=== PATIENT | female | born 1980 | race Caucasian/White ===

== ENCOUNTER 2018-05-09 09:34 | Emergency (ER) | payer MEDICAID ==
[~2018-05-09] VITALS: Ht 154.9 cm; Wt 78.2 kg
[2018-05-09 09:41] VITALS: Ht 154.9 cm; Wt 78.2 kg
[2018-05-09] MEDS ORDERED: TRAZODONE HCL150 MG PO ×2 (09:44→10:37)
[2018-05-09] MEDS ORDERED: LISINOPRIL20 MG PO (09:44)
[2018-05-09] MEDS ORDERED: NEXIUM40 MG PO (09:44)
[2018-05-09] MEDS ORDERED: PRINIVIL20 MG PO (10:37)
[2018-05-09] MEDS ORDERED: OMEPRAZOLE40 MG PO (10:37)
[2018-05-09 11:37] VITALS: BP 145/94
[2018-05-10] MEDS ORDERED: VISTARIL50 MG PO (11:49)
[2018-05-10] MEDS ORDERED: SEROQUEL25 MG PO (11:49)
[2018-05-10] MEDS ORDERED: ZESTORETIC 20-1 EACH PO (11:49)
[2018-05-10] MEDS ORDERED: KEFLEX500 MG PO (11:52)
== END 2018-05-09 11:35 | disposition home or self-care (01) ==
LOC: D.ER 09:34
DX: F41.9 Anxiety disorder, unspecified (principal); K21.9 Gastro-esophageal reflux disease without esophagitis; I10 Essential (primary) hypertension

== ENCOUNTER 2018-05-10 10:40 | Emergency (ER) | payer MEDICAID ==
[~2018-05-10] VITALS: Ht 154.9 cm; Wt 77.3 kg
[~2018-05-10 10:40] MED LIST: LISINOPRIL20 MG PO; NEXIUM40 MG PO; OMEPRAZOLE40 MG PO; PRINIVIL20 MG PO; TRAZODONE HCL150 MG PO
[2018-05-10 10:55] VITALS: Ht 154.9 cm; Wt 77.3 kg
[2018-05-10] MEDS ORDERED: VISTARIL50 MG PO (11:49)
[2018-05-10] MEDS ORDERED: ZESTORETIC 20-1 EACH PO (11:49)
[2018-05-10] MEDS ORDERED: SEROQUEL25 MG PO (11:49)
[2018-05-10] MEDS ORDERED: KEFLEX500 MG PO (11:52)
[2018-05-10 13:32] VITALS: BP 127/73
== END 2018-05-10 13:23 | disposition home or self-care (01) ==
LOC: D.ER 10:40
DX: F41.9 Anxiety disorder, unspecified (principal); F31.81 Bipolar II disorder; G47.00 Insomnia, unspecified; J02.0 Streptococcal pharyngitis

== ENCOUNTER 2018-05-12 14:59 | Emergency (ER) | payer MEDICAID ==
[~2018-05-12] VITALS: Ht 154.9 cm; Wt 77.3 kg
[~2018-05-12 14:59] MED LIST changes: +KEFLEX500 MG PO; +SEROQUEL25 MG PO; +VISTARIL50 MG PO; +ZESTORETIC 20-1 EACH PO
[2018-05-12 15:07] VITALS: Ht 154.9 cm; Wt 77.3 kg
[2018-05-12] MEDS ORDERED: VISTARIL50 MG PO (17:42)
[2018-05-12] MEDS ORDERED: TAMIFLU75 MG PO (17:42)
[2018-05-12 18:00] VITALS: BP 122/76
== END 2018-05-12 18:22 | disposition home or self-care (01) ==
LOC: D.ER 14:59
DX: J09.X2 Influenza due to identified novel influenza A virus with other respiratory manifestations (principal); F17.200 Nicotine dependence, unspecified, uncomplicated; I10 Essential (primary) hypertension

== ENCOUNTER 2018-05-24 14:58 | Emergency (ER) | payer MEDICAID ==
[~2018-05-24] VITALS: Ht 154.9 cm; Wt 72.7 kg
[~2018-05-24 14:58] MED LIST changes: +TAMIFLU75 MG PO
[2018-05-24 15:01] VITALS: Ht 154.9 cm; Wt 72.7 kg
[2018-05-24 15:59] LABS: BASOPHILS 0.4 % (0-2); EOSINOPHILS 2.7 % (0-7); HEMATOCRIT 36.7 % (36.0-48.0); HEMOGLOBIN 12.3 g/dL (12-16); IMMATURE GRANULOCYTES 0.2 % (0-5); LYMPHOCYTES 18.8 % (15-50); MCH 30.8 pg (26.0-34.0); MCHC 33.5 g/dL (31.0-37.0); MEAN PLATELET VOLUME 11.1 fL (7.4-10.4); MONOCYTES 5.4 % (2-11); NEUTROPHILS 72.5 % (40-80); PLATELET COUNT 237 10x3/uL (130-400); RBC 3.99 10x6/uL (4.00-5.40); RDW 14.1 % (11.5-14.5); WBC 10.5 10x3/uL (4.8-10.8)
[2018-05-24 16:20] LABS: ALBUMIN 3.5 g/dL (3.4-5.0); ALKALINE PHOSPHATASE 56 U/L (46-116); ALT (SGPT) 30 U/L (10-68); BILIRUBIN - TOTAL 0.25 mg/dL (0.2-1.3); CALC OSMOLALITY 279 mosm/kg (275-300); CALCIUM 8.8 mg/dL (8.5-10.1); CARBON DIOXIDE 24.2 mmol/L (21.0-32.0); CHLORIDE - SERUM 105 mmol/L (98-107); CREATININE - SERUM 0.7 mg/dL (0.6-1.3); GLUCOSE 99 mg/dL (74-106); POTASSIUM - SERUM 3.5 mmol/L (3.5-5.1); PROTEIN - SERUM 7.8 g/dL (6.4-8.2); SODIUM 141 mmol/L (136-145); UREA NITROGEN 9 mg/dL (7-18); eGFR NON AFRICAN AMERICAN > 90 mL/min (90-120)
[2018-05-24 16:25] LABS: APPEARANCE HAZY (CLEAR); BILIRUBIN NEGATIVE (NEGATIVE); COLOR YELLOW (YELLOW); GLUCOSE NEGATIVE (NEGATIVE); KETONE NEGATIVE (NEGATIVE); NITRITE NEGATIVE (NEGATIVE); PROTEIN NEGATIVE (NEGATIVE); SPECIFIC GRAVITY 1.015 (1.005-1.020); UROBILINOGEN NORMAL (NORMAL)
[2018-05-24 16:35] LABS: BACTERIA MODERATE /hpf (NONE SEEN); EPITHELIAL CELLS 0-5 /hpf (0-5); MUCUS <1+ /lpf (NONE SEEN); RED CELLS - URINE 0-5 /hpf (0-5); UDS - AMPHET NEGATIVE QUAL (NEGATIVE); UDS - BARB NEGATIVE QUAL (NEGATIVE); UDS - BENZO POSITIVE QUAL (NEGATIVE); UDS - COCAINE NEGATIVE QUAL (NEGATIVE); UDS - OPIATE NEGATIVE QUAL (NEGATIVE); UDS - PCP NEGATIVE QUAL (NEGATIVE); UDS - THC NEGATIVE QUAL (NEGATIVE)
[2018-05-24 20:54] VITALS: BP 137/94
[2018-05-29 10:13] LABS: CHLAMYDIA TRACHOMATIS, NAA Negative (Negative)
== END 2018-05-24 21:33 | disposition home or self-care (01) ==
LOC: D.ER 14:58
PROVIDERS: Family Medicine
DX: F10.21 Alcohol dependence, in remission (principal); F41.9 Anxiety disorder, unspecified; A59.9 Trichomoniasis, unspecified